=== PATIENT | male | born 1990 | race Two or more races ===

== ENCOUNTER 2020-06-16 11:20 | Inpatient (IN) | payer SELFPAY ==
[~2020-06-16] VITALS: Ht 170.2 cm; Wt 93.0 kg
[2020-06-16] VITALS (11 sets, daily range): BP systolic 109–133; BP diastolic 54–93
[2020-06-16] MEDS ORDERED: Omnipaque-300 100ml vial INJ PRN (12:00)
[2020-06-16] MEDS ORDERED: HYDROmorphone 1mg/ml Carpuject IVP ONE (12:00)
[2020-06-16] MEDS ORDERED: Ketorolac 30mg Inj IV ONE (12:00)
--- NOTE | 2020-06-16 12:09 | Emergency Room Report ---
History of Present Illness General Chief Complaint: Abdominal Pain Source: Patient Present Illness HPI 29-year-old male, recent diagnosis of Covid 4 days ago presents with sharp epigastric pain that started this morning patient was seen in outside hospital patient was evaluated with blood work no advanced imaging patient reports continued pain severity is moderate, intermittent no known aggravating relieving factors no fevers no chills patient does endorse some nausea and vomiting no diarrhea no chest pain or shortness of breath patient presents for evaluation and treatment Allergies: Coded Allergies: No Known Allergies (Unverified , 06/16/20) COVID-19 Screening Contact w/high risk pt: Yes Experienced COVID-19 symptoms?: Yes 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 COVID-19 Screening: Positive COVID-19 COVID-19 Testing Source: nasopharynx Patient History Past Medical History: see triage record Reviewed Nursing Documentation: PMH: Agreed; PSxH: Agreed Nursing Documentation-PMH Past Medical History: No Stated History Review of Systems All Other Systems: negative except mentioned in HPI Physical Exam Vital Signs Date Time Temp Pulse Resp B/P (MAP) Pulse Ox O2 Delivery O2 Flow Rate FiO2 06/16/20 11:26 97.7 86 12 133/93 (106) 95 Room Air Sp02 EP Interpretation: reviewed, normal General Appearance: well appearing, no apparent distress, alert Head: normocephalic, atraumatic Eyes: bilateral eye PERRL, bilateral eye EOMI ENT: uvula midline, moist mucus membranes Neck: supple, thyroid normal, supple/symm/no masses Respiratory: lungs clear, no respiratory distress, no retraction, no accessory muscle use Cardiovascular #1: normal peripheral pulses, regular rate, rhythm, no edema, no gallop, no murmur Gastrointestinal: soft, no guarding, no rebound, tenderness - Epigastrically Musculoskeletal: normal inspection Neurologic: alert, oriented x3 Psychiatric: mood/affect normal Skin: no rash, warm/dry Medical Decision Making Diagnostic Impression: Primary Impression: Appendicitis Qualified Codes: K35.30 - Acute appendicitis with localized peritonitis, without perforation or gangrene Additional Impression: COVID-19 ER Course 29-year-old male presents with epigastric pain now with right lower quadrant pain while in the ED Repeat evaluation at 1:20 PM patient now with right lower quadrant tenderness Patient started on Zosyn Dr. Shi consulted Plan for admission for surgical management. Patient admitted to Dr. Munguia Laboratory Tests Test 06/16/20 11:56 White Blood Count 17.5 K/UL (4.8-10.8) H Red Blood Count 6.25 M/UL (4.70-6.10) H Hemoglobin 17.6 G/DL (14.2-18.0) Hematocrit 52.0 % (42.0-52.0) Mean Corpuscular Volume 83 FL (80-99) Mean Corpuscular Hemoglobin 28.1 PG (27.0-31.0) Mean Corpuscular Hemoglobin Concent 33.8 G/DL (32.0-36.0) Red Cell Distribution Width 12.5 % (11.6-14.8) Platelet Count 225 K/UL (150-450) Mean Platelet Volume 7.2 FL (6.5-10.1) Neutrophils (%) (Auto) % (45.0-75.0) Lymphocytes (%) (Auto) % (20.0-45.0) Monocytes (%) (Auto) % (1.0-10.0) Eosinophils (%) (Auto) % (0.0-3.0) Basophils (%) (Auto) % (0.0-2.0) Differential Total Cells Counted 100 Neutrophils % (Manual) 89 % (45-75) H Lymphocytes % (Manual) 8 % (20-45) L Monocytes % (Manual) 3 % (1-10) Eosinophils % (Manual) 0 % (0-3) Basophils % (Manual) 0 % (0-2) Band Neutrophils 0 % (0-8) Platelet Estimate Adequate Platelet Morphology Normal Red Blood Cell Morphology Normal Urine Color Yellow Urine Appearance Cloudy Urine pH 5 (4.5-8.0) Urine Specific [place] 1.020 (1.005-1.035) Urine Protein 2+ (NEGATIVE) H Urine Glucose (UA) Negative (NEGATIVE) Urine Ketones 1+ (NEGATIVE) H Urine Blood 1+ (NEGATIVE) H Urine Nitrite Negative (NEGATIVE) Urine Bilirubin Negative (NEGATIVE) Urine Urobilinogen Normal MG/DL (0.0-1.0) Urine Leukocyte Esterase Negative (NEGATIVE) Urine RBC 0-2 /HPF (0 - 0) H Urine WBC 0 /HPF (0 - 0) Urine Squamous Epithelial Cells Occasional /LPF Urine Amorphous Sediment Many /LPF (NONE) H Urine Bacteria Occasional /HPF (NONE) Sodium Level 139 MMOL/L (136-145) Potassium Level 4.4 MMOL/L (3.5-5.1) Chloride Level 102 MMOL/L (98-107) Carbon Dioxide Level 26 MMOL/L (21-32) Anion Gap 11 mmol/L (5-15) Blood Urea Nitrogen 10 mg/dL (7-18) Creatinine 1.0 MG/DL (0.55-1.30) Estimated Glomerular Filtration Rate > 60 mL/min (>60) Glucose Level 126 MG/DL (74-106) H Calcium Level 10.2 MG/DL (8.5-10.1) H Total Bilirubin 0.5 MG/DL (0.2-1.0) Aspartate Amino Transferase (AST) 34 U/L (15-37) Alanine Aminotransferase (ALT) 86 U/L (12-78) H Alkaline Phosphatase 108 U/L (46-116) Total Protein 8.9 G/DL (6.4-8.2) H Albumin 4.6 G/DL (3.4-5.0) Globulin 4.3 g/dL Albumin/Globulin Ratio 1.1 (1.0-2.7) Lipase 132 U/L (73-393) Urine Opiates Screen Negative (NEGATIVE) Urine Barbiturates Screen Negative (NEGATIVE) Phencyclidine (PCP) Screen Negative (NEGATIVE) Urine Amphetamines Screen Negative (NEGATIVE) Urine Benzodiazepines Screen Negative (NEGATIVE) Urine Cocaine Screen Negative (NEGATIVE) Urine Marijuana (THC) Screen Negative (NEGATIVE) CT/MRI/US Diagnostic Results CT/MRI/US Diagnostic Results : Impression CT shows: Appendicitis, groundglass opacities at the lung bases patient with appendicitis and COVID-19 Last Vital Signs Date Time Temp Pulse Resp B/P (MAP) Pulse Ox O2 Delivery O2 Flow Rate FiO2 06/16/20 11:26 97.7 86 12 133/93 (106) 95 Room Air Disposition: ADMITTED INPATIENT Condition: Dennis Pires MD Jun 16, 2020 12:09
[2020-06-16 12:27] LABS: HEMOGLOBIN 17.6 G/DL (14.2-18.0); MEAN CORPUSCULAR VOLUME 83 FL (80-99); PLATELET COUNT 225 K/UL (150-450); RED BLOOD COUNT 6.25 M/UL (4.70-6.10); RED CELL DISTRIBUTION WIDTH 12.5 % (11.6-14.8); WHITE BLOOD COUNT 17.5 K/UL (4.8-10.8)
[2020-06-16 12:28] LABS: APPEARANCE,URINE CLOUDY; BILIRUBIN, URINE NEGATIVE (NEGATIVE); GLUCOSE, URINE (UA) NEGATIVE (NEGATIVE); KETONES,URINE 1+ (NEGATIVE); LEUKOCYTE ESTERASE ,URINE NEGATIVE (NEGATIVE); NITRITE,URINE NEGATIVE (NEGATIVE); PH,URINE 5 (4.5-8.0); PROTEIN,URINE 2+ (NEGATIVE); UROBILINOGEN,URINE NORMAL MG/DL (0.0-1.0)
[2020-06-16 12:33] LABS: COLOR,URINE YELLOW
[2020-06-16 12:36] LABS: ANION GAP 11 mmol/L (5-15); BLOOD UREA NITROGEN 10 mg/dL (7-18); CALCIUM 10.2 MG/DL (8.5-10.1); CARBON DIOXIDE 26 MMOL/L (21-32); CHLORIDE 102 MMOL/L (98-107); POTASSIUM 4.4 MMOL/L (3.5-5.1); SODIUM 139 MMOL/L (136-145)
[2020-06-16 12:40] LABS: ALANINE AMINOTRANSFERASE 86 U/L (12-78); ALBUMIN 4.6 G/DL (3.4-5.0); ALBUMIN/GLOBULIN RATIO 1.1 (1.0-2.7); ALKALINE PHOSPHATASE 108 U/L (46-116); ASPARTATE AMINO TRANSFERASE 34 U/L (15-37); BILIRUBIN,TOTAL 0.5 MG/DL (0.2-1.0)
--- NOTE | 2020-06-16 13:07 | NUR ---
ED Nurse Note: pt returned from ct
[2020-06-16] MEDS ORDERED: metroNIDAZOLE 500mg tab ORAL ONE (13:30)
[2020-06-16] MEDS ORDERED: cefTRIAXone 1 GM in NS 55 ML IVPB ONE (13:30)
--- NOTE | 2020-06-16 13:38 | Diagnostic Imaging Report ---
Clinical Indication: Abdominal pain, nausea and vomiting Technique: No oral contrast utilized, per emergency room physician request IV administration nonionic contrast. Venous phase spiral acquisition obtained through the abdomen and pelvis. Multiplanar reconstructions were generated. Total dose length product 557 mGycm. CTDIvol(s) 9 mGy. Dose reduction achieved using automated exposure control Comparison: none Findings: The appendix is enlarged and there is periappendiceal inflammation. No fluid collection or gas demonstrated. No evidence of diverticulosis or diverticulitis. No small bowel distention. No free or loculated intraperitoneal gas or fluid is evident. There is a tiny umbilical hernia contains only fat. Distal esophagus, stomach, duodenum are unremarkable. The liver is hypoattenuating, consistent with fatty change. The gallbladder, bile ducts, pancreas are unremarkable. The adrenals are unremarkable. There is a prominent left extrarenal pelvis, kidneys are otherwise unremarkable. No renal or ureteral calculi, hydronephrosis, or hydroureter. No pelvic mass or adenopathy. Included lung bases demonstrate posterior dependent atelectatic changes. There are a few small faint nondependent groundglass opacities in the lingula, right middle lobe, and anterior inferior right lower lobe. The bones are unremarkable. Impression: Positive for uncomplicated acute appendicitis Scattered small basilar groundglass opacities, nonspecific but could indicate multifocal pneumonia such as viral pneumonia Fatty liver Findings discussed by phone with Dr. Horta at the time of interpretation The CT scanner at [facility] is accredited by the [employer] and the scans are performed using protocols designed to limit radiation exposure to as low as reasonably achievable to attain images of sufficient resolution adequate for diagnostic evaluation.
[2020-06-16] MEDS ORDERED: Piperacillin/Tazobactam 3.375 GM in NS 110 ML IVPB ONE (13:45)
--- NOTE | 2020-06-16 13:50 | NUR ---
ED Nurse Note: rapid covid sent down
--- NOTE | 2020-06-16 14:10 | History and Physical ---
History of Present Illness General Date patient seen: Jun 16, 2020 Time patient seen: 13:30 Reason for Hospitalization: Abdominal Pain Present Illness HPI 29 years old male with no significant past medical history, presented to the emergency department with complaint of abdominal pain located in epigastric region since the morning. Patient pain reported as sharp , 10 out of 10, intermittent. No radiation. Patient also reported nausea and nonbloody vomiting , but no diarrhea. No fever or chills. No chest pain or shortness of breath. Patient was diagnosed outisde with COVID-19 on June 10. Upon evaluation patient was afebrile, saturation was 95% on room air. Laboratory work-up revealed leukocytosis WBC 17.5, stable hemoglobin ,hematocrit and platelet count. Urinalysis revealed +2 protein , no evidence of urinary tract infection. Stable electrolytes and renal parameters. Glucose 126. Ca 10.3 AST 34 , ALT 86, stable lipase. Urine toxicology screen was negative. CT scan of the abdomen and pelvis revealed uncomplicated acute appendicitis. Scattered small basilar groundglass opacity nonspecific, but could indicate multifocal pneumonia. Fatty liver. In emergency department patient received empiric antibiotic along with Pepcid and antiemetic. IV fluids provided. Surgery consulted. Rapid COVID 19 pending. Patient will be admitted to medical surgical floor for further management. Allergies: Coded Allergies: No Known Allergies (Unverified , 06/16/20) COVID-19 Screening Contact w/high risk pt: Yes Experienced COVID-19 symptoms?: Yes Coronavirus symptoms experienc: Loss of taste or smell, Nausea/Vomiting Patient History Healthcare decision maker Resuscitation status Full code Advanced Directive on File Review of Systems Constitutional: Reports: weakness Respiratory: Reports: other - COVID diagnsoed 06/10 Cardiovascular: Reports: no symptoms Gastrointestinal: Reports: see HPI Genitourinary: Reports: no symptoms Musculoskeletal: Reports: no symptoms Skin: Reports: no symptoms Psychiatric: Reports: no symptoms Neurological: Reports: no symptoms Endocrine: Reports: no symptoms Hematologic/Lymphatic: Reports: no symptoms Physical Exam General Appearance: WD/WN, no apparent distress, alert Lines, tubes and drains: peripheral HEENT: normocephalic, atraumatic, anicteric, mucous membranes moist, PERRL Neck: supple Respiratory/Chest: chest wall non-tender, lungs clear Cardiovascular/Chest: normal peripheral pulses, normal rate, regular rhythm Abdomen: normal bowel sounds, soft - RLQ and epigastric tenderenss, no rebound, no guarding Extremities: normal range of motion, non-tender, no calf tenderness, normal ca pillary refill Skin Exam: normal pigmentation, warm/dry Neurologic: volleyball referee II-XII grossly normal, no motor/sensory deficits, alert, oriented x 3, responsive Musculoskeletal: normal muscle bulk Last 24 Hour Vital Signs Date Time Temp Pulse Resp B/P (MAP) Pulse Ox O2 Delivery O2 Flow Rate FiO2 06/16/20 12:00 97.7 12 133/93 95 Room Air 06/16/20 12:00 86 12 Room Air 06/16/20 11:26 97.7 86 12 133/93 (106) 95 Room Air Laboratory Tests Test 06/16/20 11:56 White Blood Count 17.5 K/UL (4.8-10.8) H Red Blood Count 6.25 M/UL (4.70-6.10) H Hemoglobin 17.6 G/DL (14.2-18.0) Hematocrit 52.0 % (42.0-52.0) Mean Corpuscular Volume 83 FL (80-99) Mean Corpuscular Hemoglobin 28.1 PG (27.0-31.0) Mean Corpuscular Hemoglobin Concent 33.8 G/DL (32.0-36.0) Red Cell Distribution Width 12.5 % (11.6-14.8) Platelet Count 225 K/UL (150-450) Mean Platelet Volume 7.2 FL (6.5-10.1) Neutrophils (%) (Auto) % (45.0-75.0) Lymphocytes (%) (Auto) % (20.0-45.0) Monocytes (%) (Auto) % (1.0-10.0) Eosinophils (%) (Auto) % (0.0-3.0) Basophils (%) (Auto) % (0.0-2.0) Differential Total Cells Counted 100 Neutrophils % (Manual) 89 % (45-75) H Lymphocytes % (Manual) 8 % (20-45) L Monocytes % (Manual) 3 % (1-10) Eosinophils % (Manual) 0 % (0-3) Basophils % (Manual) 0 % (0-2) Band Neutrophils 0 % (0-8) Platelet Estimate Adequate Platelet Morphology Normal Red Blood Cell Morphology Normal Urine Color Yellow Urine Appearance Cloudy Urine pH 5 (4.5-8.0) Urine Specific [place] 1.020 (1.005-1.035) Urine Protein 2+ (NEGATIVE) H Urine Glucose (UA) Negative (NEGATIVE) Urine Ketones 1+ (NEGATIVE) H Urine Blood 1+ (NEGATIVE) H Urine Nitrite Negative (NEGATIVE) Urine Bilirubin Negative (NEGATIVE) Urine Urobilinogen Normal MG/DL (0.0-1.0) Urine Leukocyte Esterase Negative (NEGATIVE) Urine RBC 0-2 /HPF (0 - 0) H Urine WBC 0 /HPF (0 - 0) Urine Squamous Epithelial Cells Occasional /LPF Urine Amorphous Sediment Many /LPF (NONE) H Urine Bacteria Occasional /HPF (NONE) Sodium Level 139 MMOL/L (136-145) Potassium Level 4.4 MMOL/L (3.5-5.1) Chloride Level 102 MMOL/L (98-107) Carbon Dioxide Level 26 MMOL/L (21-32) Anion Gap 11 mmol/L (5-15) Blood Urea Nitrogen 10 mg/dL (7-18) Creatinine 1.0 MG/DL (0.55-1.30) Estimat Glomerular Filtration Rate > 60 mL/min (>60) Glucose Level 126 MG/DL (74-106) H Calcium Level 10.2 MG/DL (8.5-10.1) H Total Bilirubin 0.5 MG/DL (0.2-1.0) Aspartate Amino Transf (AST/SGOT) 34 U/L (15-37) Alanine Aminotransferase (ALT/SGPT) 86 U/L (12-78) H Alkaline Phosphatase 108 U/L (46-116) Total Protein 8.9 G/DL (6.4-8.2) H Albumin 4.6 G/DL (3.4-5.0) Globulin 4.3 g/dL Albumin/Globulin Ratio 1.1 (1.0-2.7) Lipase 132 U/L (73-393) Urine Opiates Screen Negative (NEGATIVE) Urine Barbiturates Screen Negative (NEGATIVE) Phencyclidine (PCP) Screen Negative (NEGATIVE) Urine Amphetamines Screen Negative (NEGATIVE) Urine Benzodiazepines Screen Negative (NEGATIVE) Urine Cocaine Screen Negative (NEGATIVE) Urine Marijuana (THC) Screen Negative (NEGATIVE) Height (Feet): 5 Height (Inches): 7.00 Weight (Pounds): 205 Medications Current Medications Medications (Trade) Dose Ordered Sig/Black Route PRN Reason Start Time Stop Time Status Last Admin Dose Admin Iohexol (OMNIPAQUE-300 100ml) 100 ml NOW PRN INJ Radiology Procedure 06/16/20 12:00 06/18/20 11:59 Piperacillin Sod/ Tazobactam Sod 3.375 gm/Sodium Chloride 110 ml @ 220 mls/hr ONCE ONCE IVPB 06/16/20 13:45 06/16/20 14:14 06/16/20 13:36 Assessment/Plan Assessment/Plan: ASSESSMENT Acute appendicitis COVID infection [place] liver Elevated AST possibly due to fatty liver Mild hyper Ca likely due to dehydration PLAN OF CARE admit to MS floor NPO IVF empiric Zosyn pain management a/emetic prn surgery eval rapid COVID 19 pending, likely will be positive remains on RA, pulse oximetry stable hold steroids since no hypoxia hold Remdesivir, ID consult fup with CXR monitor inflammatory markers DVT prophylaxis with LMWH supportive care case discussed and evaluated by supervising physician Jodi Kurtz STREAM CONTROL OFFICER Jun 16, 2020 14:10
[2020-06-16] MEDS ORDERED: Morphine Sulfate 2mg/ml Inj(IV/IM USE ONLY) IVP PRN (14:15)
--- NOTE | 2020-06-16 14:15 | NUR ---
ED Nurse Note: Andreina cesar [phone]
--- NOTE | 2020-06-16 15:31 | NUR ---
ED Nurse Note: hand off given to rossi harden
--- NOTE | 2020-06-16 15:40 | Diagnostic Imaging Report ---
Indication: Shortness of breath Technique: One view of the chest Comparison: none Findings: Right hemidiaphragm is elevated. Lungs and pleural spaces are clear. The heart size is normal Impression: Negative
--- NOTE | 2020-06-16 15:59 | NUR ---
NURSE NOTES: Received report from THERESE Adames from ER. Patient received in stable condition, AAOx4, able to make needs known, ambulatory. RN oriented patient to room and conducted head to toe assessment. Patient on room air, breathing is even and unlabored, no SOB noted at this time. Patient states he has a pain scale of 5/10 on his RLQ but denies the need of any pain medication at this time. Skin is intact, IV site patent and intact. COnsent for appendectomy obtained and explained by THERESE Adames. Belongings checked and signed with patient. RN to obtain admission orders from primary. Bed is locked and placed in lowest position. Call light within reach. WIll continue to monitor
--- NOTE | 2020-06-16 16:02 | Pre-Procedure Note/Attestation ---
Pre-Procedure Note/Attestation Complete Prior to Procedure Planned Procedure: not applicable Procedure Narrative: laparoscopic appendectomy possible open appendectomy Indications for Procedure Pre-Operative Diagnosis: Acute Appendicitis Attestation I attest that I discussed the nature of the procedure; its benefits; risks and complications; and alternatives (and the risks and benefits of such alternatives), prior to the procedure, with the patient (or the patient's legal sales representative livestock). I attest that, if there was a reasonable possibility of needing a blood transfusion, the patient (or the patient's legal sales representative livestock) was given the [facility] standardized written summary, pursuant to the [employer] Blood Safety Act ([place] Health and Safety Code # 1645, as amended). I attest that I re-evaluated the patient just prior to the surgery and that there has been no change in the patient's H&P, except as documented below: Mercedes Shi MD Jun 16, 2020 16:02
[2020-06-16] MEDS ORDERED: Lidocaine 1% MPF 10mg/ml 5ml ONE (16:14)
[2020-06-16] MEDS ORDERED: Sodium Chloride 10ml vial INJ ONE (16:14)
[2020-06-16] MEDS ORDERED: DiphenhydrAMINE 50mg/ml Inj IVP PRN (16:15)
[2020-06-16] MEDS ORDERED: Meperidine 25mg/1ml Inj (FOR RIGORS ONLY) IV PRN (16:15)
[2020-06-16] MEDS ORDERED: fentaNYL 100 mcg/2 mL IV ONE (16:15)
[2020-06-16] MEDS ORDERED: Atropine Sulfate 0.4mg/ml inj IVP PRN (16:15)
[2020-06-16] MEDS ORDERED: fentaNYL 100 mcg/2 mL IV PRN (16:15)
[2020-06-16] MEDS ORDERED: LORazepam Inj 2mg/ml 1ml IV PRN (16:15)
[2020-06-16] MEDS ORDERED: oxyCODONE HCL/Acetaminophen 5/325mg ORAL PRN (16:15)
[2020-06-16] MEDS ORDERED: Midazolam 2mg/2ml Inj IVP PRN (16:15)
[2020-06-16] MEDS ORDERED: Hydromorphone 0.5mg/0.5ml inj IVP PRN (16:15)
[2020-06-16] MEDS ORDERED: HYDROcodone/Acetamin 7.5/325 tab ORAL PRN (16:15)
[2020-06-16] MEDS ORDERED: Labetalol 5mg/ml 20ml vial IV PRN (16:15)
[2020-06-16] MEDS ORDERED: HYDROcodone/Acetamin 5/325 tab ORAL PRN (16:15)
[2020-06-16] MEDS ORDERED: Metoclopramide 10mg/2ml Inj IVP PRN ×2 (16:15→18:15)
[2020-06-16] MEDS ORDERED: LR 1000ml 1,000 ML IVLG SCH (16:15)
[2020-06-16] MEDS ORDERED: Bupivacaine 0.25% Inj 30ml INJ ONE (16:18)
[2020-06-16] MEDS ORDERED: NeoSporin Gu Irrig 1ml Amp IRRIG ONE (16:19)
[2020-06-16] MEDS ORDERED: Bacitracin 50000 Units Vial ONE (16:19)
--- NOTE | 2020-06-16 16:25 | Anethesia Preoperative Eval ---
Anesthesia Pre-op PMH/ROS General Date of Evaluation: Jun 16, 2020 Time of Evaluation: 16:36 Anesthesiologist: Daniel ASA Score: ASA 3 Mallampati Score Class I : Soft palate, uvula, fauces, pillars visible Class II: Soft palate, uvula, fauces visible Class III: Soft palate, base of uvula visible Class IV: Only hard plate visible Mallampati Classification: Class III Surgeon: Yuridia Diagnosis: Acute Appendicitis Surgical Procedure: Laproscopic Appendectomy Anesthesia History: none Family History: no anesthesia problems Allergies: Coded Allergies: No Known Allergies (Unverified , 06/16/20) Medications: see eMAR Patient NPO?: Yes Past Medical History Hematology/Immune: Reports: other - Covid + Other: obesity - BMI 32 Anesthesia Pre-op Phys. Exam Physician Exam Last Vital Signs Date Time Temp Pulse Resp B/P (MAP) Pulse Ox O2 Delivery O2 Flow Rate FiO2 06/16/20 12:00 97.7 12 133/93 95 Room Air 06/16/20 12:00 86 Constitutional: NAD Neurologic: CN 2-12 intact Cardiovascular: RRR Respiratory: CTA Gastrointestinal: S/NT/ND Airway Exam Mallampati Score: Class III MO: full ROM: full Teeth: intact Anesthesia Pre-op A/P Labs Hematology Test 06/16/20 11:56 White Blood Count 17.5 K/UL (4.8-10.8) H Red Blood Count 6.25 M/UL (4.70-6.10) H Hemoglobin 17.6 G/DL (14.2-18.0) Hematocrit 52.0 % (42.0-52.0) Mean Corpuscular Volume 83 FL (80-99) Mean Corpuscular Hemoglobin 28.1 PG (27.0-31.0) Mean Corpuscular Hemoglobin Concent 33.8 G/DL (32.0-36.0) Red Cell Distribution Width 12.5 % (11.6-14.8) Platelet Count 225 K/UL (150-450) Mean Platelet Volume 7.2 FL (6.5-10.1) Neutrophils (%) (Auto) % (45.0-75.0) Lymphocytes (%) (Auto) % (20.0-45.0) Monocytes (%) (Auto) % (1.0-10.0) Eosinophils (%) (Auto) % (0.0-3.0) Basophils (%) (Auto) % (0.0-2.0) Differential Total Cells Counted 100 Neutrophils % (Manual) 89 % (45-75) H Lymphocytes % (Manual) 8 % (20-45) L Monocytes % (Manual) 3 % (1-10) Eosinophils % (Manual) 0 % (0-3) Basophils % (Manual) 0 % (0-2) Band Neutrophils 0 % (0-8) Platelet Estimate Adequate Platelet Morphology Normal Red Blood Cell Morphology Normal Chemistry Test 06/16/20 11:56 Sodium Level 139 MMOL/L (136-145) Potassium Level 4.4 MMOL/L (3.5-5.1) Chloride Level 102 MMOL/L (98-107) Carbon Dioxide Level 26 MMOL/L (21-32) Anion Gap 11 mmol/L (5-15) Blood Urea Nitrogen 10 mg/dL (7-18) Creatinine 1.0 MG/DL (0.55-1.30) Estimat Glomerular Filtration Rate > 60 mL/min (>60) Glucose Level 126 MG/DL (74-106) H Calcium Level 10.2 MG/DL (8.5-10.1) H Total Bilirubin 0.5 MG/DL (0.2-1.0) Aspartate Amino Transf (AST/SGOT) 34 U/L (15-37) Alanine Aminotransferase (ALT/SGPT) 86 U/L (12-78) H Alkaline Phosphatase 108 U/L (46-116) C-Reactive Protein, Quantitative Pending Total Protein 8.9 G/DL (6.4-8.2) H Albumin 4.6 G/DL (3.4-5.0) Globulin 4.3 g/dL Albumin/Globulin Ratio 1.1 (1.0-2.7) Lipase 132 U/L (73-393) Risk Assessment & Plan Assessment: ASA 3 Plan: GA, SED, GlideScope Status Change Before Surgery: No Pre-Antibiotics Dru Gram Ancef IV Given Within 1 Hr of Incision: Yes Time Given: 17:06 Luis Sanchez MD Jun 16, 2020 16:25
--- NOTE | 2020-06-16 16:26 | Immediate Post-Op Evaluation ---
Immediate Post-Op Evalulation Immediate Post-Op Evalulation Procedure: Laproscopic Appendectomy Date of Evaluation: Jun 16, 2020 Time of Evaluation: 18:33 IV Fluids: 1000 LR Blood Products: 0 Estimated Blood Loss: 10 Urinary Output: 0 Blood Pressure Systolic: 116 Blood Pressure Diastolic: 67 Pulse Rate: 106 Respiratory Rate: 18 O2 Sat by Pulse Oximetry: 93 Temperature (Fahrenheit): 98.2 Pain Score (1-10): 2 Nausea: No Vomiting: No Complications 0 Patient Status: awake, reacts, patent, extubated, none Hydration Status: adequate Dru Gram Ancef IV Given Within 1 Hr of Incision: Yes Time Given: 17:06 Luis Sanchez MD Jun 16, 2020 16:26
[2020-06-16] MEDS ORDERED: Rocuronium Bromide 50mg/5ml Inj IV ONE (16:32)
--- NOTE | 2020-06-16 16:59 | Consultation ---
DATE OF CONSULTATION: 06/16/2020 PREOPERATIVE CONSULTATION REASON FOR CONSULTATION: Abdominal pain. REQUESTING PHYSICIAN: ER physician. HISTORY OF PRESENT ILLNESS: This is a 29-year-old male who presented to emergency room complaining of abdominal pain since last night. He stated the pain was located at the epigastrium and now he can feel it more on the right lower quadrant of the abdomen. This pain has been associated with nausea and vomiting. He denied any fever, cough, dysuria, or frequency. He had a normal bowel movement this morning. He has been diagnosed positive with COVID-19 about a week ago, but he denies any fever or cough. PAST MEDICAL HISTORY: He denies allergies, asthma, diabetes, hypertension, cardiac or renal diseases. SURGERIES: None. MEDICATIONS: None. SOCIAL HISTORY: The patient is a 29-year-old male who lives as a common-law and is father of 2 children. He denies smoking, but drinks occasionally. REVIEW OF SYSTEMS: Noncontributory. PHYSICAL EXAMINATION: GENERAL: The patient appeared to be a well-developed, well-nourished 29-year-old male, lying on the gurney, complaining of abdominal pain. HEENT: Head is normocephalic and atraumatic. Eyes, pupils are equal, round, and reactive to light. Mouth is clear. NECK: There is no palpable thyromegaly or adenopathy. CHEST: Clear to auscultation and percussion. HEART: There is no gallop or murmur. S1 and S2 are within normal limits. ABDOMEN: Soft and flat with tenderness and guarding at right lower quadrant. There is no palpable organomegaly. Bowel sounds are audible. GENITALIA: Normal. EXTREMITIES: Within normal limits. LABORATORY DATA: CBC has shown a WBC of 17,500 with a left shift. Chemistry is within normal limits except for calcium of 10.2. UA is normal. CAT scan of the abdomen has been interpreted as acute appendicitis. ASSESSMENT: Acute appendicitis. PLAN: After rehydration, the patient will undergo laparoscopic appendectomy, possible open appendectomy. Risks and benefits have been explained to him. He understood and granted consent. Mercedes Shi M.D. DR: ROYER JOB#: [id number] CC:
[2020-06-16] MEDS ORDERED: Neostigmine 1mg/ml 10ml Inj ONE (17:00)
[2020-06-16] MEDS ORDERED: LR 1000ml ONE (17:00)
[2020-06-16] MEDS ORDERED: NS Irrig 1000ml ONE (17:00)
[2020-06-16] MEDS ORDERED: Sterile Water Irrig 1000ml IRRIG ONE (17:00)
[2020-06-16] MEDS ORDERED: Glycopyrrolate 0.2mg/ml 1ml Vial ONE (17:00)
--- NOTE | 2020-06-16 18:08 | Brief Operative Note ---
Immediate Post Operative Note Operative Note Pre-op Diagnosis: Acute Appendicitis Procedure: lap appy Post-op Diagnosis: acute appy Post-op Diagnosis: same as pre-op Findings: consistent w/pre-op dx studies Surgeon: Guicho Roberts Tile Professional: none Anesthesiologist: Dr. Sanchez Anesthesia: general Specimen: yes Complications: none Condition: stable Fluids: per anesth. Estimated Blood Loss: volume - 10 ml Drains: none Implant(s) used?: No Mercedes Shi MD Jun 16, 2020 18:08
[2020-06-16] MEDS ORDERED: Acetaminophen 650 MG SUPP RECTAL PRN (18:15)
--- NOTE | 2020-06-16 18:22 | Infectious Diseases Prog Note ---
Assessment/Plan Assessment/Plan Full consult dictated: appendicitis leukocytosis covid- + s/p lap cholecystectomy zosyn no tx for covid - sats stable thank you Subjective Allergies: Coded Allergies: No Known Allergies (Unverified , 06/16/20) Objective Last 24 Hour Vital Signs Date Time Temp Pulse Resp B/P (MAP) Pulse Ox O2 Delivery O2 Flow Rate FiO2 06/16/20 16:00 97.6 83 19 129/65 (86) 98 06/16/20 15:59 Room Air 06/16/20 12:00 97.7 12 133/93 95 Room Air 06/16/20 12:00 86 12 Room Air 06/16/20 11:26 97.7 86 12 133/93 (106) 95 Room Air Height (Feet): 5 Height (Inches): 7.00 Weight (Pounds): 205 Microbiology Date/Time Source Procedure Growth Status 06/16/20 13:40 Nasopharynx SARS-CoV-2 RdRp Gene Assay - Final Complete Laboratory Tests Test 06/16/20 11:56 White Blood Count 17.5 K/UL (4.8-10.8) H Red Blood Count 6.25 M/UL (4.70-6.10) H Hemoglobin 17.6 G/DL (14.2-18.0) Hematocrit 52.0 % (42.0-52.0) Mean Corpuscular Volume 83 FL (80-99) Mean Corpuscular Hemoglobin 28.1 PG (27.0-31.0) Mean Corpuscular Hemoglobin Concent 33.8 G/DL (32.0-36.0) Red Cell Distribution Width 12.5 % (11.6-14.8) Platelet Count 225 K/UL (150-450) Mean Platelet Volume 7.2 FL (6.5-10.1) Neutrophils (%) (Auto) % (45.0-75.0) Lymphocytes (%) (Auto) % (20.0-45.0) Monocytes (%) (Auto) % (1.0-10.0) Eosinophils (%) (Auto) % (0.0-3.0) Basophils (%) (Auto) % (0.0-2.0) Differential Total Cells Counted 100 Neutrophils % (Manual) 89 % (45-75) H Lymphocytes % (Manual) 8 % (20-45) L Monocytes % (Manual) 3 % (1-10) Eosinophils % (Manual) 0 % (0-3) Basophils % (Manual) 0 % (0-2) Band Neutrophils 0 % (0-8) Platelet Estimate Adequate Platelet Morphology Normal Red Blood Cell Morphology Normal Urine Color Yellow Urine Appearance Cloudy Urine pH 5 (4.5-8.0) Urine Specific [place] 1.020 (1.005-1.035) Urine Protein 2+ (NEGATIVE) H Urine Glucose (UA) Negative (NEGATIVE) Urine Ketones 1+ (NEGATIVE) H Urine Blood 1+ (NEGATIVE) H Urine Nitrite Negative (NEGATIVE) Urine Bilirubin Negative (NEGATIVE) Urine Urobilinogen Normal MG/DL (0.0-1.0) Urine Leukocyte Esterase Negative (NEGATIVE) Urine RBC 0-2 /HPF (0 - 0) H Urine WBC 0 /HPF (0 - 0) Urine Squamous Epithelial Cells Occasional /LPF Urine Amorphous Sediment Many /LPF (NONE) H Urine Bacteria Occasional /HPF (NONE) Sodium Level 139 MMOL/L (136-145) Potassium Level 4.4 MMOL/L (3.5-5.1) Chloride Level 102 MMOL/L (98-107) Carbon Dioxide Level 26 MMOL/L (21-32) Anion Gap 11 mmol/L (5-15) Blood Urea Nitrogen 10 mg/dL (7-18) Creatinine 1.0 MG/DL (0.55-1.30) Estimat Glomerular Filtration Rate > 60 mL/min (>60) Glucose Level 126 MG/DL (74-106) H Calcium Level 10.2 MG/DL (8.5-10.1) H Total Bilirubin 0.5 MG/DL (0.2-1.0) Aspartate Amino Transf (AST/SGOT) 34 U/L (15-37) Alanine Aminotransferase (ALT/SGPT) 86 U/L (12-78) H Alkaline Phosphatase 108 U/L (46-116) C-Reactive Protein, Quantitative 3.4 mg/dL (0.00-0.90) H Total Protein 8.9 G/DL (6.4-8.2) H Albumin 4.6 G/DL (3.4-5.0) Globulin 4.3 g/dL Albumin/Globulin Ratio 1.1 (1.0-2.7) Lipase 132 U/L (73-393) Urine Opiates Screen Negative (NEGATIVE) Urine Barbiturates Screen Negative (NEGATIVE) Phencyclidine (PCP) Screen Negative (NEGATIVE) Urine Amphetamines Screen Negative (NEGATIVE) Urine Benzodiazepines Screen Negative (NEGATIVE) Urine Cocaine Screen Negative (NEGATIVE) Urine Marijuana (THC) Screen Negative (NEGATIVE) Current Medications Medications (Trade) Dose Ordered Sig/Black Route PRN Reason Start Time Stop Time Status Last Admin Dose Admin Acetaminophen (Tylenol) 650 mg Q4H PRN ORAL Mild Pain (Pain Scale 1-3) 06/16/20 14:15 07/16/20 14:14 Acetaminophen (Tylenol) 650 mg Q4H PRN ORAL Temp >100.5 06/16/20 14:15 07/16/20 14:14 Acetaminophen (Tylenol) 650 mg Q4H PRN RECTAL Mild Pain (Pain Scale 1-3) 06/16/20 18:15 07/16/20 18:14 Acetaminophen/ Hydrocodone Bitart ([place] 5/325) 1 tab Q1H PRN ORAL Mild Pain (Pain Scale 1-3) 06/16/20 16:15 06/16/20 21:00 Acetaminophen/ Hydrocodone Bitart ([place] 7.5/325) 1 tab Q1H PRN ORAL Moderate Pain (Pain Scale 4-6) 06/16/20 16:15 06/16/20 21:00 Al Hydroxide/Mg Hydroxide (Mylanta) 15 ml Q1H PRN ORAL gi upset 06/16/20 16:15 06/16/20 21:00 Atropine Sulfate (Atropine 0.4mg/ ml) 0.5 mg Q5M PRN IVP HR<40 06/16/20 16:15 06/16/20 21:00 Dextrose (Dextrose 50%) 25 ml Q30M PRN IV Hypoglycemia 06/16/20 14:15 09/14/20 14:14 Dextrose (Dextrose 50%) 50 ml Q30M PRN IV Hypoglycemia 06/16/20 14:15 09/14/20 14:14 Dextrose/ Electrolytes 1,000 ml @ 100 mls/hr Q10H IV 06/16/20 20:00 07/16/20 19:59 Diphenhydramine HCl (Benadryl) 25 mg Q15M PRN IVP Itching 06/16/20 16:15 06/16/20 21:00 Enoxaparin Sodium (Lovenox) 40 mg Q24H SUBQ 06/16/20 21:00 09/14/20 20:59 Famotidine (Pepcid) 40 mg DAILY ORAL 06/17/20 09:00 09/15/20 08:59 Fentanyl Citrate (Sublimaze 100 mcg/2 mL) 25 mcg Q10M PRN IV Moderate Pain (Pain Scale 4-6) 06/16/20 16:15 06/16/20 21:00 Hydralazine HCl (Apresoline) 5 mg Q30M PRN IV SBP>160 / DBP>90 06/16/20 16:15 06/16/20 21:00 Hydromorphone HCl (Dilaudid) 0.5 mg Q15M PRN IVP Severe Pain (Pain Scale 7-10) 06/16/20 16:15 06/16/20 21:00 Hydromorphone HCl (Dilaudid) 1 mg Q4H PRN IVP For Pain 06/16/20 18:15 06/23/20 18:14 UNV Iohexol (OMNIPAQUE-300 100ml) 100 ml NOW PRN INJ Radiology Procedure 06/16/20 12:00 06/18/20 11:59 Labetalol HCl (Normodyne) 5 mg Q10M PRN IV SBP>160 / DBP>90 06/16/20 16:15 06/16/20 21:00 Lorazepam (Ativan 2mg/ml 1ml) 1 mg Q15M PRN IV For Anxiety 06/16/20 16:15 06/16/20 21:00 Meperidine HCl (Demerol) 25 mg Q5M PRN IV SHIVERING.MAY REPEAT X 1 06/16/20 16:15 06/16/20 21:00 Metoclopramide HCl (Reglan) 10 mg Q1H PRN IVP Nausea & Vomiting 06/16/20 16:15 06/16/20 21:00 Metoclopramide HCl (Reglan) 10 mg Q8H PRN IVP Nausea & Vomiting 06/16/20 18:15 07/16/20 18:14 Midazolam HCl (Versed 2mg/2ml vial) 1 mg Q15M PRN IVP For Anxiety 06/16/20 16:15 06/16/20 21:00 Morphine Sulfate (Morphine Sulfate) 2 mg Q4H PRN IVP Moderate Pain (Pain Scale 4-6) 06/16/20 14:15 06/23/20 14:14 Ondansetron HCl (Zofran) 4 mg Q1H PRN IVP Nausea & Vomiting 06/16/20 16:15 06/16/20 21:00 Ondansetron HCl (Zofran) 4 mg Q6H PRN IVP Nausea & Vomiting 06/16/20 14:15 07/16/20 14:14 Oxycodone/ Acetaminophen (Percocet 5-325) 1 tab Q1H PRN ORAL Severe Pain (Pain Scale 7-10) 06/16/20 16:15 06/16/20 21:00 Pantoprazole (Protonix) 40 mg DAILY IVP 06/16/20 18:15 07/16/20 18:14 Piperacillin Sod/ Tazobactam Sod 3.375 gm/Sodium Chloride 110 ml @ 27.5 mls/hr Q8HR IVPB 06/16/20 22:00 06/23/20 21:59 Sodium Chloride 1,000 ml @ 75 mls/hr [id number] IVLG 06/16/20 17:00 07/16/20 16:59 06/16/20 16:42 Giovanna Lewis MD Jun 16, 2020 18:22
--- NOTE | 2020-06-16 19:15 | Consultation ---
DATE OF CONSULTATION: 06/16/2020 INFECTIOUS DISEASE CONSULTATION CONSULTING PHYSICIAN: Giovanna Lewis MD. ATTENDING PHYSICIAN: Tano Munguia MD. REFERRING PHYSICIAN: Tano Munguia MD. REASON FOR CONSULTATION: Appendicitis, leukocytosis, COVID infection. CHIEF COMPLAINT: The patient's chief complaint coming into the hospital is abdominal pain and appendicitis. HISTORY OF PRESENT ILLNESS: This is a 29-year-old male who comes in to [facility]. The patient had abdominal pain. The patient's CT scan of the abdomen and pelvis showed appendicitis. The patient is status post appendectomy. The patient has elevated white count. The patient positive for COVID testing. Saturations are stable on room air. Chest x-ray is negative. Infectious Disease consultation is requested for management of this patient. The patient is on Zosyn currently. The patient is again status post appendectomy for appendicitis. REVIEW OF SYSTEMS: GENERAL: Main issue is abdominal pain. He has no fevers. PULMONARY: No shortness of breath. GASTROINTESTINAL: He has abdominal discomfort. GENITOURINARY: No urinary symptoms. PAST MEDICAL HISTORY: Otherwise negative. ALLERGIES: No known allergies. SOCIAL HISTORY: Negative. FAMILY HISTORY: Noncontributory. MEDICATIONS: Noted and reviewed. He is on Zosyn. PHYSICAL EXAMINATION: VITAL SIGNS: Temperature 97.6, pulse rate 106, respiratory rate 18, saturation 98% on room air, blood pressure 129/65. GENERAL: Alert, responsive. He is in COVID isolation. HEART: Regular. No gallop or murmur. LUNGS: Clear bilaterally. ABDOMEN: Soft. Some discomfort. NEUROLOGIC: intact. SKIN: No rash. LABORATORY DATA: White count 17.5, hemoglobin 17.6. Creatinine 1.0. LFTs noted. IMAGING: Chest x-ray, negative. CT scan of the abdomen and pelvis was consistent with acute appendicitis. ASSESSMENT AND PLAN: 1. The patient with acute appendicitis and elevated white count. He is status post appendectomy. Monitor the patient on Zosyn and monitor labs. 2. COVID infection positive. His SARS PCR testing was positive. The patient's saturation is stable on room air. Monitor the patient for hypoxia. No indication for COVID treatment. 3. Continue treatment per primary consultants. Giovanna Lewis M.D. DR: DAVI JOB#: [id number] CC: AARON
--- NOTE | 2020-06-16 19:34 | NUR ---
NURSE HAND-OFF: Important Events on Shift: status post appedectomy Patient Status: stable Diet: clear liquid Pending Orders: n/a Pending Results/Labs:n/a Pending MD notification:n/a Latest Vital Signs: Temperature 98.8 , Pulse 102 , B/P 114 /67 , Respiratory Rate 18 , O2 SAT 100 , Nasal Cannula, O2 Flow Rate 3 . Vital Sign Comment: stable Latest Hatch Fall Score: 20 Fall Risk: Low Risk Safety Measures: Call light Within Reach, Bed Alarm , Side Rails Side Rails x2, Bed position Low and Locked. Fall Precautions: Patient Fall Education Report given to THERESE Gregory.
--- NOTE | 2020-06-16 19:35 | NUR ---
NURSE NOTES: Received patient in no apparent distress. A&OX4. IV site patent and intact. Abdominal surgical dressing noted, dry and intact. Bed in lowest position. Call light within reach. Will continue to monitor.
--- NOTE | 2020-06-16 19:44 | Operative Note - Dictated ---
DATE OF OPERATION: 06/16/2020 PREOPERATIVE DIAGNOSIS: Acute appendicitis. POSTOPERATIVE DIAGNOSIS: Acute appendicitis. OPERATION: Laparoscopic appendectomy. COMPLICATION: None. SURGEON: Mercedes Shi MD CRYPTOLOGIC SUPPORT SPECIALIST: None. ANESTHESIA: General with endotracheal tube. ANESTHESIOLOGIST: Dr. Sanchez. INDICATIONS: This is a 29-year-old male, who presented to emergency room complaining of abdominal pain since last night. The pain was initially at epigastrium and at the time of presentation, it was clearly needed more in the right lower quadrant. This pain was associated with nausea and vomiting. Physical examination showed tenderness and guarding at right lower quadrant. CBC showed WBC of 17,500 with left shift. CAT scan of the abdomen was interpreted as acute appendicitis. DESCRIPTION OF PROCEDURE: The patient was placed supine on the operating table and after general anesthesia with endotracheal tube, the abdomen was properly prepped and draped. Initially, a small incision was given above the umbilicus through which a Veress needle was introduced into the intraperitoneal cavity. This cavity was insufflated up to 15 mmHg and then the Veress needle was removed. The 5 mm trocar was placed in the intraperitoneal cavity through the incision above the umbilicus. Laparoscopic camera was introduced into the intraperitoneal cavity through the trocar above the umbilicus. Under direct vision, a 5 mm trocar was placed at the suprapubic area and a 12 mm trocar at the left lower quadrant of the abdomen. Initially, rapid exploration was performed, which showed the diaphragms to be normal. The part of the stomach that could be seen was normal. The liver showed signs of fatty infiltrate. The gallbladder was distended. The bowels were covered with omentum. Exploration of the right lower quadrant cavity was performed. The cecum was identified. On further exploration, the appendix was identified, which was distended, severely inflamed, and hard. The tip of the appendix had dense adhesions to the posterior abdominal wall. The mesoappendix was isolated and the mesoappendix was ligated and transected with a IQRA stapler and then the appendix was ligated and transected with the help of another IQRA stapler at the base. The appendix was removed from the intraperitoneal cavity through the incision at the left lower quadrant with the help of the Endopouch. After removal of the appendix, the right paracolic gutter and the pelvis was thoroughly irrigated with antibiotic solution. Another exploration was performed and there was no bleeding or complication. The trocars were removed under direct vision. The incisions were infiltrated with a total of 30 mL of Marcaine 0.25%. The subcutaneous tissue was approximated with 4-0 chromic and the skin incisions were approximated with running subcuticular suture of 4-0 chromic. The patient tolerated the procedure very well and was transferred to recovery room in stable condition and extubated. Sponge and needle count correct. Estimated blood loss 10 mL. Condition of the patient at the end of procedure is stable. Mercedes Shi M.D. DR: Pillo JOB#: [id number] CC:
--- NOTE | 2020-06-16 19:52 | NUR ---
NURSE NOTES: Clarified with Jodi Kurtz FUEL AGENT regarding 2 order of D%1/2ns 20kcl and NS IV fluid. Obtained continue d51/2 ns 20kcl order.
[2020-06-16] MEDS: Enoxaparin 40mg Inj SUBQ SCH (20:44)
--- NOTE | 2020-06-16 20:44 | NUR ---
NURSE NOTES: Lovenox held due to post op day #0.
[2020-06-16] MEDS: Pantoprazole Inj IVP SCH (21:22)
[2020-06-16] MEDS: D5 1/2NS w/KCl 20mEq 1,000 ML IV SCH (21:22)
[2020-06-16] MEDS: Piperacillin/Tazobactam 3.375 GM in NS 110 ML IVPB SCH (21:23)
[2020-06-16] MEDS: HYDROmorphone 1mg/ml Carpuject IVP PRN (21:39)
[2020-06-16] MEDS ORDERED: Piperacillin/Tazobactam 3.375 GM in NS 110 ML IVPB SCH (22:00)
[2020-06-17] VITALS: BP 107/67
[2020-06-17 04:00] VITALS: BP 120/100
[2020-06-17] MEDS: D5 1/2NS w/KCl 20mEq 1,000 ML IV SCH ×2 (06:02→16:00)
[2020-06-17 06:03] LABS: HEMATOCRIT 47.6 % (42.0-52.0); HEMOGLOBIN 16.2 G/DL (14.2-18.0); MEAN CORPUSCULAR VOLUME 84 FL (80-99); PLATELET COUNT 259 K/UL (150-450); RED BLOOD COUNT 5.67 M/UL (4.70-6.10); RED CELL DISTRIBUTION WIDTH 12.8 % (11.6-14.8); WHITE BLOOD COUNT 14.9 K/UL (4.8-10.8)
[2020-06-17] MEDS: Piperacillin/Tazobactam 3.375 GM in NS 110 ML IVPB SCH ×3 (06:03→21:28)
[2020-06-17] MEDS: HYDROmorphone 1mg/ml Carpuject IVP PRN ×2 (06:12→16:11)
[2020-06-17 06:42] LABS: ANION GAP 11 mmol/L (5-15); BLOOD UREA NITROGEN 13 mg/dL (7-18); CALCIUM 9.3 MG/DL (8.5-10.1); CARBON DIOXIDE 26 MMOL/L (21-32); CHLORIDE 103 MMOL/L (98-107); CREATININE 1.3 MG/DL (0.55-1.30); POTASSIUM 3.9 MMOL/L (3.5-5.1); SODIUM 140 MMOL/L (136-145)
--- NOTE | 2020-06-17 07:27 | NUR ---
NURSE HAND-OFF: Important Events on Shift: Void well Patient Status: Diet: clear liquid Pending Orders: Pending Results/Labs: Pending MD notification: Latest Vital Signs: Temperature 97.4 , Pulse 81 , B/P 120 /100 , Respiratory Rate 18 , O2 SAT 100 , Nasal Cannula, O2 Flow Rate 3.0 . Vital Sign Comment: Latest Hatch Fall Score: 20 Fall Risk: Low Risk Safety Measures: Call light Within Reach, Bed Alarm Zone 1, Side Rails Side Rails x2, Bed position Low and Locked. Fall Precautions: Patient Fall Education Report given to Russ SALEH.
--- NOTE | 2020-06-17 07:30 | NUR ---
NURSE NOTES: Received report from Polly SALEH. Patient is in awake, A&O x4. No acute distress noted. IV fluids running as ordered. Call light in reach, bed alarm on, bed in lowest position.
[2020-06-17 08:00] VITALS: BP 110/74
[2020-06-17] MEDS: Pantoprazole Inj IVP SCH (08:30)
--- NOTE | 2020-06-17 10:44 | Pulmonology Progress Note ---
Subjective Allergies: Coded Allergies: No Known Allergies (Unverified , 06/16/20) Subjective s/p lap appy 06/16 leuk trending down, afebrile pulse ox remains stable on RA no SOB, no CP started on diet as tolerated pain controlled with current analgesics Objective Last 24 Hour Vital Signs Date Time Temp Pulse Resp B/P (MAP) Pulse Ox O2 Delivery O2 Flow Rate FiO2 06/17/20 08:00 97.5 84 18 110/74 (86) 98 06/17/20 04:00 97.4 81 18 120/100 (107) 100 06/17/20 00:00 97.7 106 18 107/67 (80) 97 06/16/20 21:00 Nasal Cannula 3.0 06/16/20 20:00 96.8 110 18 130/69 (89) 97 06/16/20 18:43 98.8 102 18 114/67 100 Nasal Cannula 3 06/16/20 18:40 99 20 111/61 99 Nasal Cannula 3 06/16/20 18:30 104 22 109/62 98 Nasal Cannula 3 06/16/20 18:25 100 20 116/63 100 Simple Mask 6 06/16/20 18:21 106 18 93 06/16/20 18:20 102 19 115/57 100 Simple Mask 6 06/16/20 18:15 107 22 125/63 100 Simple Mask 6 06/16/20 18:10 108 20 112/54 100 Simple Mask 6 06/16/20 18:05 98.2 106 18 116/67 100 Simple Mask 6 06/16/20 16:00 97.6 83 19 129/65 (86) 98 06/16/20 15:59 Room Air 06/16/20 12:00 97.7 12 133/93 95 Room Air 06/16/20 12:00 86 12 Room Air 06/16/20 11:26 97.7 86 12 133/93 (106) 95 Room Air Intake and Output 06/16/20 06/17/20 19:00 07:00 Intake Total 1000 ml 1310.0 ml Output Total 10 ml 600 ml Balance 990 ml 710.0 ml Intake Oral 800 ml IV Total 1000 ml 510.0 ml Output Urine Total 600 ml Estimated Blood Loss 10 ml # Voids 1 Objective General Appearance: WD/WN, no apparent distress, alert Lines, tubes and drains: peripheral HEENT: normocephalic, atraumatic, anicteric, mucous membranes moist, PERRL Neck: supple Respiratory/Chest: chest wall non-tender, lungs clear Cardiovascular/Chest: normal peripheral pulses, normal rate, regular rhythm Abdomen: normal bowel sounds, soft - RLQ and epigastric tenderenss, no rebound, no guarding Extremities: normal range of motion, non-tender, no calf tenderness, normal capillary refill Skin Exam: normal pigmentation, warm/dry Neurologic: acute care clinical nurse specialist II-XII grossly normal, no motor/sensory deficits, alert, orient ed x 3, responsive Musculoskeletal: normal muscle bulk Microbiology Date/Time Source Procedure Growth Status 06/16/20 13:40 Nasopharynx SARS-CoV-2 RdRp Gene Assay - Final Complete Laboratory Tests 06/16/20 11:56: White Blood Count 17.5H, Red Blood Count 6.25H, Hemoglobin 17.6, Hematocrit 52.0, Mean Corpuscular Volume 83, Mean Corpuscular Hemoglobin 28.1, Mean Corpuscular Hemoglobin Concent 33.8, Red Cell Distribution Width 12.5, Platelet Count 225, Mean Platelet Volume 7.2, Neutrophils (%) (Auto) , Lymphocytes (%) (Auto) , Monocytes (%) (Auto) , Eosinophils (%) (Auto) , Basophils (%) (Auto) , Differential Total Cells Counted 100, Neutrophils % (Manual) 89H, Lymphocytes % (Manual) 8L, Monocytes % (Manual) 3, Eosinophils % (Manual) 0, Basophils % (Manual) 0, Band Neutrophils 0, Platelet Estimate Adequate, Platelet Morphology Normal, Red Blood Cell Morphology Normal, Urine Color Yellow, Urine Appearance Cloudy, Urine pH 5, Urine Specific [place] 1.020, Urine Protein 2+H, Urine Glucose (UA) Negative, Urine Ketones 1+H, Urine Blood 1+H, Urine Nitrite Negat [place], Urine Bilirubin Negative, Urine Urobilinogen Normal, Urine Leukocyte Esterase Negative, Urine RBC 0-2H, Urine WBC 0, Urine Squamous Epithelial Cells Occasional, Urine Amorphous Sediment ManyH, Urine Bacteria Occasional, Sodium Level 139, Potassium Level 4.4, Chloride Level 102, Carbon Dioxide Level 26, Anion Gap 11, Blood Urea Nitrogen 10, Creatinine 1.0, Estimat Glomerular Filtration Rate > 60, Glucose Level 126H, Calcium Level 10.2H, Total Bilirubin 0.5, Aspartate Amino Transf (AST/SGOT) 34, Alanine Aminotransferase (ALT/SGPT) 86H, Alkaline Phosphatase 108, C-Reactive Protein, Quantitative 3.4H, Total Protein 8.9H, Albumin 4.6, Globulin 4.3, Albumin/Globulin Ratio 1.1, Lipase 132, Urine Opiates Screen Negative, Urine Barbiturates Screen Negative, Phencyclidine (PCP) Screen Negative, Urine Amphetamines Screen Negative, Urine Benzodiazepines Screen Negative, Urine Cocaine Screen Negative, Urine Marijuana (THC) Screen Negative 06/17/20 05:11: White Blood Count 14.9H, Red Blood Count 5.67, Hemoglobin 16.2, Hematocrit 47.6, Mean Corpuscular Volume 84, Mean Corpuscular Hemoglobin 28.5, Mean Corpuscular Hemoglobin Concent 34.0, Red Cell Distribution Width 12.8, Platelet Count 259, Mean Platelet Volume 7.5, Neutrophils (%) (Auto) , Lymphocytes (%) (Auto) , Monocytes (%) (Auto) , Eosinophils (%) (Auto) , Basophils (%) (Auto) , Sodium Level 140, Potassium Level 3.9, Chloride Level 103, Carbon Dioxide Level 26, Anion Gap 11, Blood Urea Nitrogen 13, Creatinine 1.3, Estimat Glomerular Filtration Rate > 60, Glucose Level 137H, Calcium Level 9.3 Current Medications Medications (Trade) Dose Ordered Sig/Black Route PRN Reason Start Time Stop Time Status Last Admin Dose Admin Acetaminophen (Tylenol) 650 mg Q4H PRN ORAL Mild Pain (Pain Scale 1-3) 06/16/20 14:15 07/16/20 14:14 Acetaminophen (Tylenol) 650 mg Q4H PRN ORAL Temp >100.5 06/16/20 14:15 07/16/20 14:14 Acetaminophen (Tylenol) 650 mg Q4H PRN RECTAL Mild Pain (Pain Scale 1-3) 06/16/20 18:15 07/16/20 18:14 Dextrose (Dextrose 50%) 25 ml Q30M PRN IV Hypoglycemia 06/16/20 14:15 09/14/20 14:14 Dextrose (Dextrose 50%) 50 ml Q30M PRN IV Hypoglycemia 06/16/20 14:15 09/14/20 14:14 Dextrose/ Electrolytes 1,000 ml @ 100 mls/hr Q10H IV 06/16/20 20:00 2/12/21 19:59 06/17/20 06:02 Enoxaparin Sodium (Lovenox) 40 mg Q24H SUBQ 06/16/20 21:00 09/14/20 20:59 Famotidine (Pepcid) 40 mg DAILY ORAL 06/17/20 09:00 09/15/20 08:59 06/17/20 08:30 Hydromorphone HCl (Dilaudid) 1 mg Q4H PRN IVP For Pain 06/16/20 18:15 06/23/20 18:14 06/17/20 06:12 Iohexol (OMNIPAQUE-300 100ml) 100 ml NOW PRN INJ Radiology Procedure 06/16/20 12:00 06/18/20 11:59 Metoclopramide HCl (Reglan) 10 mg Q8H PRN IVP Nausea & Vomiting 06/16/20 18:15 07/16/20 18:14 Ondansetron HCl (Zofran) 4 mg Q6H PRN IVP Nausea & Vomiting 06/16/20 14:15 07/16/20 14:14 Pantoprazole (Protonix) 40 mg DAILY IVP 06/16/20 18:15 07/16/20 18:14 06/17/20 08:30 Piperacillin Sod/ Tazobactam Sod 3.375 gm/Sodium Chloride 110 ml @ 27.5 mls/hr Q8HR IVPB 06/16/20 22:00 06/23/20 21:59 06/17/20 06:03 Assessment/Plan Assessment/Plan ASSESSMENT Acute appendicitis COVID infection [place] liver Elevated AST possibly due to fatty liver Mild hyper Ca likely due to dehydration PLAN OF CARE MS floor s/p lap appy 06/16 pain management diet as tolerated IVF -dc when tolerates diet empiric Zosyn a/emetic prn OOB as tolerated IS while in the bed rapid COVID 19 positive remains on RA, pulse oximetry stable hold steroids since no hypoxia hold Remdesivir, ID consult appreciated - no indication for COVID treatment at this time fup with CXR- no acute CP pathology monitor inflammatory markers DVT prophylaxis with LMWH supportive care dc plan for am, trend WBC case discussed and evaluated by supervising physician Jodi Kurtz [employer]USEUM [employer]UR[employer] CHIEF Jun 17, 2020 10:44
--- NOTE | 2020-06-17 11:32 | General Surgery Progress Note ---
General Surgery-Progress Note Subjective Procedure Performed lap appy Symptoms: improved Objective Last 24 Hour Vital Signs Date Time Temp Pulse Resp B/P (MAP) Pulse Ox O2 Delivery O2 Flow Rate FiO2 06/17/20 08:00 97.5 84 18 110/74 (86) 98 06/17/20 04:00 97.4 81 18 120/100 (107) 100 06/17/20 00:00 97.7 106 18 107/67 (80) 97 06/16/20 21:00 Nasal Cannula 3.0 06/16/20 20:00 96.8 110 18 130/69 (89) 97 06/16/20 18:43 98.8 102 18 114/67 100 Nasal Cannula 3 06/16/20 18:40 99 20 111/61 99 Nasal Cannula 3 06/16/20 18:30 104 22 109/62 98 Nasal Cannula 3 06/16/20 18:25 100 20 116/63 100 Simple Mask 6 06/16/20 18:21 106 18 93 06/16/20 18:20 102 19 115/57 100 Simple Mask 6 06/16/20 18:15 107 22 125/63 100 Simple Mask 6 06/16/20 18:10 108 20 112/54 100 Simple Mask 6 06/16/20 18:05 98.2 106 18 116/67 100 Simple Mask 6 06/16/20 16:00 97.6 83 19 129/65 (86) 98 06/16/20 15:59 Room Air 06/16/20 12:00 97.7 12 133/93 95 Room Air 06/16/20 12:00 86 12 Room Air I&O Intake and Output 06/16/20 06/17/20 19:00 07:00 Intake Total 1000 ml 1310.0 ml Output Total 10 ml 600 ml Balance 990 ml 710.0 ml Intake Oral 800 ml IV Total 1000 ml 510.0 ml Output Urine Total 600 ml Estimated Blood Loss 10 ml # Voids 1 Dressing: dry Drains: none Respiratory: clear Abdomen: soft, flat, present bowel sounds, non-distended Extremities: no edema, no tenderness Laboratory Tests Test 06/16/20 11:56 06/17/20 05:11 White Blood Count 17.5 K/UL (4.8-10.8) H 14.9 K/UL (4.8-10.8) H Red Blood Count 6.25 M/UL (4.70-6.10) H 5.67 M/UL (4.70-6.10) Hemoglobin 17.6 G/DL (14.2-18.0) 16.2 G/DL (14.2-18.0) Hematocrit 52.0 % (42.0-52.0) 47.6 % (42.0-52.0) Mean Corpuscular Volume 83 FL (80-99) 84 FL (80-99) Mean Corpuscular Hemoglobin 28.1 PG (27.0-31.0) 28.5 PG (27.0-31.0) Mean Corpuscular Hemoglobin Concent 33.8 G/DL (32.0-36.0) 34.0 G/DL (32.0-36.0) Red Cell Distribution Width 12.5 % (11.6-14.8) 12.8 % (11.6-14.8) Platelet Count 225 K/UL (150-450) 259 K/UL (150-450) Mean Platelet Volume 7.2 FL (6.5-10.1) 7.5 FL (6.5-10.1) Neutrophils (%) (Auto) % (45.0-75.0) % (45.0-75.0) Lymphocytes (%) (Auto) % (20.0-45.0) % (20.0-45.0) Monocytes (%) (Auto) % (1.0-10.0) % (1.0-10.0) Eosinophils (%) (Auto) % (0.0-3.0) % (0.0-3.0) Basophils (%) (Auto) % (0.0-2.0) % (0.0-2.0) Differential Total Cells Counted 100 Neutrophils % (Manual) 89 % (45-75) H Lymphocytes % (Manual) 8 % (20-45) L Monocytes % (Manual) 3 % (1-10) Eosinophils % (Manual) 0 % (0-3) Basophils % (Manual) 0 % (0-2) Band Neutrophils 0 % (0-8) Platelet Estimate Adequate Platelet Morphology Normal Red Blood Cell Morphology Normal Urine Color Yellow Urine Appearance Cloudy Urine pH 5 (4.5-8.0) Urine Specific [place] 1.020 (1.005-1.035) Urine Protein 2+ (NEGATIVE) H Urine Glucose (UA) Negative (NEGATIVE) Urine Ketones 1+ (NEGATIVE) H Urine Blood 1+ (NEGATIVE) H Urine Nitrite Negative (NEGATIVE) Urine Bilirubin Negative (NEGATIVE) Urine Urobilinogen Normal MG/DL (0.0-1.0) Urine Leukocyte Esterase Negative (NEGATIVE) Urine RBC 0-2 /HPF (0 - 0) H Urine WBC 0 /HPF (0 - 0) Urine Squamous Epithelial Cells Occasional /LPF Urine Amorphous Sediment Many /LPF (NONE) H Urine Bacteria Occasional /HPF (NONE) Sodium Level 139 MMOL/L (136-145) 140 MMOL/L (136-145) Potassium Level 4.4 MMOL/L (3.5-5.1) 3.9 MMOL/L (3.5-5.1) Chloride Level 102 MMOL/L (98-107) 103 MMOL/L (98-107) Carbon Dioxide Level 26 MMOL/L (21-32) 26 MMOL/L (21-32) Anion Gap 11 mmol/L (5-15) 11 mmol/L (5-15) Blood Urea Nitrogen 10 mg/dL (7-18) 13 mg/dL (7-18) Creatinine 1.0 MG/DL (0.55-1.30) 1.3 MG/DL (0.55-1.30) Estimat Glomerular Filtration Rate > 60 mL/min (>60) > 60 mL/min (>60) Glucose Level 126 MG/DL (74-106) H 137 MG/DL (74-106) H Calcium Level 10.2 MG/DL (8.5-10.1) H 9.3 MG/DL (8.5-10.1) Total Bilirubin 0.5 MG/DL (0.2-1.0) Aspartate Amino Transf (AST/SGOT) 34 U/L (15-37) Alanine Aminotransferase (ALT/SGPT) 86 U/L (12-78) H Alkaline Phosphatase 108 U/L (46-116) C-Reactive Protein, Quantitative 3.4 mg/dL (0.00-0.90) H Total Protein 8.9 G/DL (6.4-8.2) H Albumin 4.6 G/DL (3.4-5.0) Globulin 4.3 g/dL Albumin/Globulin Ratio 1.1 (1.0-2.7) Lipase 132 U/L (73-393) Urine Opiates Screen Negative (NEGATIVE) Urine Barbiturates Screen Negative (NEGATIVE) Phencyclidine (PCP) Screen Negative (NEGATIVE) Urine Amphetamines Screen Negative (NEGATIVE) Urine Benzodiazepines Screen Negative (NEGATIVE) Urine Cocaine Screen Negative (NEGATIVE) Urine Marijuana (THC) Screen Negative (NEGATIVE) Assessment Post-op Diagnosis acute appy Plan Additional Comments possible discharge in AM Mercedes Shi MD Jun 17, 2020 11:32
[2020-06-17 12:00] VITALS: BP 122/74
--- NOTE | 2020-06-17 12:23 | 48 Hour Post Anesthesia Eval ---
Post Anesthesia Evaluation Procedure: Laproscopic Appendectomy Date of Evaluation: Jun 17, 2020 Time of Evaluation: 12:22 Blood Pressure Systolic: 110 0: 74 Pulse Rate: 84 Respiratory Rate: 18 Temperature (Fahrenheit): 97.5 O2 Sat by Pulse Oximetry: 98 Airway: patent Nausea: No Vomiting: No Pain Intensity: 2 Hydration Status: adequate Cardiopulmonary Status: Stable Mental Status/LOC: patient returned to baseline Follow-up Care/Observations: 0 Post-Anesthesia Complications: 0 Follow-up care needed: N/A Luis Sanchez MD Jun 17, 2020 12:23
[2020-06-17] MEDS: Docusate Sod/Senna tab ORAL SCH ×2 (14:12→17:27)
[2020-06-17 16:00] VITALS: BP 130/83
--- NOTE | 2020-06-17 16:10 | NUR ---
CASE MANAGEMENT:REVIEW 29 YR OLD MALE PRESENTED TO ER CC: ABDOMINAL PAIN. N/V SI: ACUTE APPENDICITIS 97.7 86 12 133/93 95% ON RA IS: 1L NS BOLUS X2 IV PEPCID IV DILAUDID IV TORADOL IV ROCEPHIN IV FLAGYL IV ZOSYN CHEST XRAY : TO MED/SURG PLAN: TO SURGERY FOR LAP APPY
--- NOTE | 2020-06-17 19:10 | NUR ---
NURSE HAND-OFF: Important Events on Shift:[Started reg diet ] Patient Status: [stable] Diet: [reg diet] Pending Orders: [] Pending Results/Labs:[] Pending MD notification:[] Latest Vital Signs: Temperature 97.7 , Pulse 80 , B/P 130 /83 , Respiratory Rate 18 , O2 SAT 98 , Nasal Cannula, O2 Flow Rate 3.0 . Vital Sign Comment: [] Latest Hatch Fall Score: 20 Fall Risk: Low Risk Safety Measures: Call light Within Reach, Bed Alarm Zone 1, Side Rails Side Rails x2, Bed position Low and Locked. Fall Precautions: Yellow Socks Report given to [Carmen SALEH].
[2020-06-17 20:00] VITALS: BP 121/79
--- NOTE | 2020-06-17 20:06 | NUR ---
NURSE NOTES: Received report from therese jackman. patient is on bed, awake. on room air. iv access on the right ac running ivf as ordered. per THERESE jackman " 3 surgical sites with tegaderm from lap surgery " denies any pain or discomfort at the moment. reiterated to call and ask for assistance to prevent fall or injury. bed locked and in lowest position. call light and light button within easy reach. will continue plan of care.
[2020-06-17] MEDS: Enoxaparin 40mg Inj SUBQ SCH (21:00)
[2020-06-18] VITALS: BP 130/81
[2020-06-18] MEDS: D5 1/2NS w/KCl 20mEq 1,000 ML IV SCH ×2 (01:03→12:00)
[2020-06-18 04:00] VITALS: BP 124/79
[2020-06-18] MEDS: Piperacillin/Tazobactam 3.375 GM in NS 110 ML IVPB SCH (05:51)
--- NOTE | 2020-06-18 06:20 | NUR ---
NURSE HAND-OFF: Important Events on Shift: s/p lap day 2; ambulates and goes to the bathroom. Patient Status: stable Diet: regular Pending Orders: Pending Results/Labs: Pending MD notification: Latest Vital Signs: Temperature 97.4 , Pulse 88 , B/P 124 /79 , Respiratory Rate 18 , O2 SAT 99 , Nasal Cannula, O2 Flow Rate 3.0 . Vital Sign Comment: Latest Hatch Fall Score: 20 Fall Risk: Low Risk Safety Measures: Call light Within Reach, Bed Alarm Zone 1, Side Rails Side Rails x2, Bed position Low and Locked. Fall Precautions: Patient Fall Education Addendum: 06/18/20 at 0720 by Anne-Marie Marx RN HAND-OFF: Report given to fina jackman.
[2020-06-18 06:21] LABS: BASOPHILS % (AUTO) 0.4 % (0.0-2.0); EOSINOPHILS % (AUTO) 0.9 % (0.0-3.0); HEMATOCRIT 41.5 % (42.0-52.0); HEMOGLOBIN 14.1 G/DL (14.2-18.0); LYMPHOCYTES % (AUTO) 28.4 % (20.0-45.0); MEAN CORPUSCULAR VOLUME 84 FL (80-99); MONOCYTES % (AUTO) 5.6 % (1.0-10.0); NEUTROPHILS % (AUTO) 64.7 % (45.0-75.0); PLATELET COUNT 211 K/UL (150-450); RED BLOOD COUNT 4.92 M/UL (4.70-6.10); RED CELL DISTRIBUTION WIDTH 12.8 % (11.6-14.8); WHITE BLOOD COUNT 8.4 K/UL (4.8-10.8)
[2020-06-18 06:42] LABS: ANION GAP 6 mmol/L (5-15); BLOOD UREA NITROGEN 13 mg/dL (7-18); CALCIUM 9.1 MG/DL (8.5-10.1); CARBON DIOXIDE 28 MMOL/L (21-32); CHLORIDE 106 MMOL/L (98-107); CREATININE 1.1 MG/DL (0.55-1.30); POTASSIUM 4.2 MMOL/L (3.5-5.1); SODIUM 140 MMOL/L (136-145)
--- NOTE | 2020-06-18 07:15 | NUR ---
NURSE NOTES: Received report from Carmen SALEH. Patient is awake in bed, A&O x4. Reports no pain or nausea. Ambulating to restroom, activity tolerance good. Breakfast is set up in bed. No cough or Sob, patient on room air. Surgical sites clean and intact. Call light in reach, bed in lowest position, side rails up.
[2020-06-18 08:00] VITALS: BP 126/81
--- NOTE | 2020-06-18 09:09 | Pulmonology Progress Note ---
Subjective Allergies: Coded Allergies: No Known Allergies (Unverified , 06/16/20) Subjective s/p lap appy 06/16 leuk resolved afebrile pulse ox remains stable on RA no SOB, no CP pain controlled tolerates regular diet passing gas ambulated Objective Last 24 Hour Vital Signs Date Time Temp Pulse Resp B/P (MAP) Pulse Ox O2 Delivery O2 Flow Rate FiO2 06/18/20 08:09 Room Air 06/18/20 08:00 98.1 79 19 126/81 (96) 95 06/18/20 04:00 97.4 88 18 124/79 (94) 99 06/18/20 00:00 97.6 70 18 130/81 (97) 95 06/17/20 21:00 Nasal Cannula 3.0 06/17/20 20:00 97.5 76 18 121/79 (93) 99 06/17/20 16:00 97.7 80 18 130/83 (99) 98 06/17/20 12:23 84 18 98 06/17/20 12:00 97.7 67 18 122/74 (90) 97 Intake and Output 06/17/20 06/18/20 19:00 07:00 Intake Total 800 ml 450 ml Balance 800 ml 450 ml Intake Oral 800 ml 450 ml # Voids 3 3 Objective General Appearance: WD/WN, no apparent distress, alert Lines, tubes and drains: peripheral HEENT: normocephalic, atraumatic, anicteric, mucous membranes moist, PERRL Neck: supple Respiratory/Chest: chest wall non-tender, lungs clear Cardiovascular/Chest: normal peripheral pulses, normal rate, regular rhythm GI: + BS, soft, non tender, small dressings over lap incisions C?D/I- Extremities: normal range of motion, non-tender, no calf tenderness, normal capillary refill Skin Exam: normal pigmentation, warm/dry Neurologic: records supervisor II-XII grossly normal, no motor/sensory deficits, alert, oriented x 3, responsive Musculoskeletal: normal muscle bulk Microbiology Date/Time Source Procedure Growth Status 06/16/20 13:40 Nasopharynx SARS-CoV-2 RdRp Gene Assay - Final Complete Laboratory Tests 06/18/20 06:07: White Blood Count 8.4, Red Blood Count 4.92, Hemoglobin 14.1L, Hematocrit 41.5L, Mean Corpuscular Volume 84, Mean Corpuscular Hemoglobin 28.6, Mean Corpuscular Hemoglobin Concent 33.9, Red Cell Distribution Width 12.8, Platelet Count 211, Mean Platelet Volume 7.3, Neutrophils (%) (Auto) 64.7, Lymphocytes (%) (Auto) 28.4, Monocytes (%) (Auto) 5.6, Eosinophils (%) (Auto) 0.9, Basophils (%) (Auto) 0.4, Sodium Level 140, Potassium Level 4.2, Chloride Level 106, Carbon Dioxide Level 28, Anion Gap 6, Blood Urea Nitrogen 13, Creatinine 1.1, Estimat Glomerular Filtration Rate > 60, Glucose Level 90, Calcium Level 9.1 Current Medications Medications (Trade) Dose Ordered Sig/Black Route PRN Reason Start Time Stop Time Status Last Admin Dose Admin Acetaminophen (Tylenol) 650 mg Q4H PRN ORAL Mild Pain (Pain Scale 1-3) 06/16/20 14:15 07/16/20 14:14 Acetaminophen (Tylenol) 650 mg Q4H PRN ORAL Temp >100.5 06/16/20 14:15 07/16/20 14:14 Acetaminophen (Tylenol) 650 mg Q4H PRN RECTAL Mild Pain (Pain Scale 1-3) 06/16/20 18:15 07/16/20 18:14 Dextrose (Dextrose 50%) 25 ml Q30M PRN IV Hypoglycemia 06/16/20 14:15 09/14/20 14:14 Dextrose (Dextrose 50%) 50 ml Q30M PRN IV Hypoglycemia 06/16/20 14:15 09/14/20 14:14 Dextrose/ Electrolytes 1,000 ml @ 100 mls/hr Q10H IV 06/16/20 20:00 07/16/20 19:59 06/18/20 01:03 Enoxaparin Sodium (Lovenox) 40 mg Q24H SUBQ 06/16/20 21:00 09/14/20 20:59 Famotidine (Pepcid) 40 mg DAILY ORAL 06/17/20 09:00 09/15/20 08:59 06/17/20 08:30 Hydromorphone HCl (Dilaudid) 1 mg Q4H PRN IVP For Pain 06/16/20 18:15 06/23/20 18:14 06/17/20 16:11 Iohexol (OMNIPAQUE-300 100ml) 100 ml NOW PRN INJ Radiology Procedure 06/16/20 12:00 06/18/20 11:59 Metoclopramide HCl (Reglan) 10 mg Q8H PRN IVP Nausea & Vomiting 06/16/20 18:15 07/16/20 18:14 Ondansetron HCl (Zofran) 4 mg Q6H PRN IVP Nausea & Vomiting 06/16/20 14:15 07/16/20 14:14 06/17/20 17:04 Pantoprazole (Protonix) 40 mg DAILY IVP 06/16/20 18:15 07/16/20 18:14 06/17/20 08:30 Piperacillin Sod/ Tazobactam Sod 3.375 gm/Sodium Chloride 110 ml @ 27.5 mls/hr Q8HR IVPB 06/16/20 22:00 06/23/20 21:59 06/18/20 05:51 Senna/Docusate Sodium (Arianne-Colace) 1 tab TWICE A DAY ORAL 06/17/20 13:00 07/17/20 12:59 06/17/20 17:27 Assessment/Plan Assessment/Plan ASSESSMENT Acute appendicitis COVID infection Poonam liver Elevated AST possibly due to fatty liver Mild hyper Ca likely due to dehydration PLAN OF CARE MS floor s/p lap appy 06/16 pain management-controlled diet tolerated off IVF -dc when tolerates diet empiric Zosyn , leuk resolved- on dc oral Keflex a/emetic prn OOB as tolerated IS while in the bed rapid COVID 19 positive remains on RA, pulse oximetry stable hold steroids since no hypoxia hold Remdesivir, ID consult appreciated - no indication for COVID treatment at this time fup with CXR- no acute CP pathology monitor inflammatory markers DVT prophylaxis with LMWH supportive care dc today self isolation for total of 10 days from the day of diagnosis 06/16- 06/26 case discussed and evaluated by supervising physician Jodi Kurtz NP Jun 18, 2020 09:09
[2020-06-18] MEDS ORDERED: COLACE100 MG ORAL (09:12)
[2020-06-18] MEDS ORDERED: TRAMADOL HCL50 MG ORAL (09:12)
[2020-06-18] MEDS ORDERED: CEPHALEXIN500 MG ORAL (09:12)
[2020-06-18] MEDS: Docusate Sod/Senna tab ORAL SCH (09:30)
[2020-06-18] MEDS: Pantoprazole Inj IVP SCH (09:30)
[2020-06-18 12:00] VITALS: BP 126/78
--- NOTE | 2020-06-18 13:40 | NUR ---
NURSE NOTES: Patient was discharged to home via girlfriend's car. Patient stable, surgical sites clean and dry, no acute distress. Discharge teaching done, counted belonging with patient, provided D/C packet, documents signed, removed IV and ID band. Provided new mask and isolation instructions for Covid 19. New prescription given. Took patient to lobby, patient left in vehicle safely.
--- NOTE | 2020-06-20 12:22 | Discharge Summary ---
Discharge Summary Discharge Summary _ Date of admission: 06/16/2020 Date of discharge: 06/18/[address] Munguia History of Present Illness and Brief Hospital Course Mr. Escobedo is a 29-year-old male with recent diagnosis of COVID-19 4 days prior, who presented to the ED for evaluation of sharp epigastric pain that started the morning of. He reported he was evaluated at a clinic that morning where no advanced imaging study was available. Reported to have some nausea and vomiting without diarrhea, chest pain or shortness of breath. He reported that his epigastric pain radiated to right lower quadrant while in the ED. Patient was started on Zosyn and was admitted for surgical management. Given his normoxemia on room air, patient was monitored for hypoxia because there was no indication for COVID-19 treatment at that time. Low molecular weight heparin was provided for DVT prophylaxis measure. CT showed appendicitis, and groundglass opacities at the lung bases that was consistent with his recent diagnosis of COVID-19. Patient went through laparoscopic appendectomy. Patient tolerated the procedure very well and was transferred to recovery room in stable condition and extubated. Patient began tolerating regular diet, passing flatus, and ambulating. Patient was medically stable for discharge and was discharged home on 06/18/2020. Consultants: Infectious disease Dr. Lewis Surgery Dr. Shi Discharge Condition Improved and stable Discharge Activity Advance as tolerated Discharge Diet Regular diet Final diagnoses Acute appendicitis COVID-19 infection Fatty liver Hypercalcemia I have been assigned to dictate discharge summary for this account. I was not involved in the patient's management Yosvany Fletcher Jun 20, 2020 12:22
== END 2020-06-18 13:35 | disposition home or self-care (01) | DRG 341 ==
LOC: EMR 12:21 → 4E 14:13 → EDBEDREQ 15:39
PROC: 0DTJ4ZZ Resection of Appendix, Percutaneous Endoscopic Approach (ICD-10-PCS; principal; 2020-06-16 16:15)
DX: K35.80 Unspecified acute appendicitis (principal); U07.1 COVID-19; K76.0 Fatty (change of) liver, not elsewhere classified; E86.0 Dehydration; E83.52 Hypercalcemia
CPT/HCPCS: 36415; 71045; 74177; 80048; 80053; 80307; 81003; 83690; 85007; 85025; 86140; 94003; 94150; 96361; 96365; 96375; 99285; C9399; J2405; J2710; J7030; U0002

== ENCOUNTER 2020-08-15 16:24 | Emergency (ER) | payer MEDICAID ==
[~2020-08-15] VITALS: Ht 172.7 cm; Wt 79.4 kg
[~2020-08-15 16:24] MED LIST: CEPHALEXIN500 MG ORAL; COLACE100 MG ORAL; TRAMADOL HCL50 MG ORAL
[2020-08-15 17:23] LABS: BASOPHILS % (AUTO) 0.4 % (0.0-2.0); HEMATOCRIT 45.6 % (42.0-52.0); HEMOGLOBIN 16.2 G/DL (14.2-18.0); MEAN CORPUSCULAR VOLUME 81 FL (80-99); MONOCYTES % (AUTO) 5.4 % (1.0-10.0); NEUTROPHILS % (AUTO) 68.2 % (45.0-75.0); PLATELET COUNT 237 K/UL (150-450); RED BLOOD COUNT 5.61 M/UL (4.70-6.10); RED CELL DISTRIBUTION WIDTH 13.4 % (11.6-14.8); WHITE BLOOD COUNT 6.4 K/UL (4.8-10.8)
[2020-08-15 17:33] LABS: ANION GAP 10 mmol/L (5-15); BLOOD UREA NITROGEN 13 mg/dL (7-18); CALCIUM 9.7 MG/DL (8.5-10.1); CARBON DIOXIDE 28 MMOL/L (21-32); CHLORIDE 100 MMOL/L (98-107); POTASSIUM 3.8 MMOL/L (3.5-5.1); SODIUM 138 MMOL/L (136-145)
[2020-08-15 17:38] LABS: ALANINE AMINOTRANSFERASE 77 U/L (12-78); ALBUMIN 4.5 G/DL (3.4-5.0); ALBUMIN/GLOBULIN RATIO 1.3 (1.0-2.7); ALKALINE PHOSPHATASE 105 U/L (46-116); ASPARTATE AMINO TRANSFERASE 30 U/L (15-37); BILIRUBIN,TOTAL 0.8 MG/DL (0.2-1.0)
[2020-08-15 18:09] LABS: APPEARANCE,URINE CLEAR; BILIRUBIN, URINE NEGATIVE (NEGATIVE); COLOR,URINE PALE YELLOW; GLUCOSE, URINE (UA) NEGATIVE (NEGATIVE); KETONES,URINE NEGATIVE (NEGATIVE); LEUKOCYTE ESTERASE ,URINE NEGATIVE (NEGATIVE); NITRITE,URINE NEGATIVE (NEGATIVE); PH,URINE 6 (4.5-8.0); PROTEIN,URINE NEGATIVE (NEGATIVE); UROBILINOGEN,URINE 1 MG/DL (0.0-1.0)
--- NOTE | 2020-08-15 19:00 | NUR ---
pt arrives to ER with complaints of abdominal pain x few days. ER orders completed and pending results. pt in NAD at this time. respirations even and non labored, skin warm and dry.
--- NOTE | 2020-08-15 19:34 | Diagnostic Imaging Report ---
EXAM: XR Abdomen, 2 Views CLINICAL HISTORY: PAIN TECHNIQUE: Frontal view of the abdomen/pelvis with upright view of the abdomen. COMPARISON: No relevant prior studies available. FINDINGS: Intraperitoneal space: No free air. Gastrointestinal tract: Nonspecific, nonobstructive bowel gas pattern. No dilation. Bones/joints: Unremarkable. Other: Hepatomegaly with the liver measuring 25 cm in craniocaudal dimension. IMPRESSION: 1. No acute findings. 2. Hepatomegaly.
[2020-08-15] MEDS ORDERED: ONDANSETRON ODT4 MG BC (19:39)
[2020-08-15] MEDS ORDERED: MECLIZINE HCL25 MG ORAL (19:39)
[2020-08-15] MEDS ORDERED: Ketorolac 30mg Inj IV ONE (19:45)
[2020-08-15] MEDS ORDERED: Meclizine 25mg tab ORAL ONE (19:45)
[2020-08-15 20:04] VITALS: BP 125/85
--- NOTE | 2020-08-18 06:24 | Emergency Room Report ---
History of Present Illness General Chief Complaint: Abdominal Pain Source: Patient Present Illness HPI Patient is a 29-year-old male presents for increased abdominal pain. Gradual onset of symptoms over the past 2 to 3 days. States that he been having persistent pain to the upper abdomen. Had appendicitis and had laparoscopic appendectomy performed approximately 2 months ago. Has been doing well postoperatively. Denies any recent fever. Reports increased nausea. Allergies: Coded Allergies: No Known Allergies (Unverified , 06/16/20) COVID-19 Screening Contact w/high risk pt: No Experienced COVID-19 symptoms?: No COVID-19 Testing performed MANAGEMENT REP: No Patient History Past Medical History: see triage record Reviewed Nursing Documentation: PMH: Agreed; PSxH: Agreed Nursing Documentation-PMH Hx Cardiac Problems: No Hx Cancer: No Hx Neurological Problems: No Review of Systems All Other Systems: negative except mentioned in HPI Physical Exam Vital Signs Date Time Temp Pulse Resp B/P (MAP) Pulse Ox O2 Delivery O2 Flow Rate FiO2 08/15/20 16:43 98.1 76 18 128/80 (96) 97 Room Air Sp02 EP Interpretation: reviewed, normal General Appearance: normal inspection, well appearing, no apparent distress, alert, GCS 15, non-toxic Head: atraumatic ENT: normal ENT inspection, hearing grossly normal, normal voice Neck: normal inspection, full range of motion, supple, no bony tend Respiratory: normal inspection, lungs clear, normal breath sounds, no respiratory distress, no retraction, no wheezing Cardiovascular #1: regular rate, rhythm, no edema Gastrointestinal: normal inspection, normal bowel sounds, non tender, soft, no guarding, no hernia Genitourinary: no CVA tenderness Musculoskeletal: normal inspection, back normal, normal range of motion Neurologic: alert, motor strength/tone normal, radiology orderly III-XII nml as tested, responsive, speech normal, normal inspection Psychiatric: normal inspection, judgement/insight normal, mood/affect normal Medical Decision Making Diagnostic Impression: Primary Impression: Nonspecific abdominal pain ER Course Patient presented for abdominal pain. Differential diagnoses included ischemic bowel,perforated viscus, abdominal aortic aneurysm, inferior myocardial infarction, viral gastroenteritis among others.Because patient's complexity imaging studies, and laboratory testing ordered. Laboratory testing showed . Normal blood counts without evidence of obstructive pattern on acute abdominal series. Patient's symptoms appear to be related to viral type illness. Patient appears to be stable for close outpatient follow up. Patient was given medications for symptomatic management. He was advised to follow-up with primary care physician for recheck in 1 to 2 days. Is advised to return if worse. This medical record is generated with [employer] warehouse logistics manager software. There may be some warehouse logistics manager discrepancies related to use of this software Labs Test 08/15/20 17:10 08/15/20 18:00 White Blood Count 6.4 K/UL (4.8-10.8) Red Blood Count 5.61 M/UL (4.70-6.10) Hemoglobin 16.2 G/DL (14.2-18.0) Hematocrit 45.6 % (42.0-52.0) Mean Corpuscular Volume 81 FL (80-99) Mean Corpuscular Hemoglobin 28.8 PG (27.0-31.0) Mean Corpuscular Hemoglobin Concent 35.4 G/DL (32.0-36.0) Red Cell Distribution Width 13.4 % (11.6-14.8) Platelet Count 237 K/UL (150-450) Mean Platelet Volume 7.4 FL (6.5-10.1) Neutrophils (%) (Auto) 68.2 % (45.0-75.0) Lymphocytes (%) (Auto) 24.0 % (20.0-45.0) Monocytes (%) (Auto) 5.4 % (1.0-10.0) Eosinophils (%) (Auto) 2.0 % (0.0-3.0) Basophils (%) (Auto) 0.4 % (0.0-2.0) Sodium Level 138 MMOL/L (136-145) Potassium Level 3.8 MMOL/L (3.5-5.1) Chloride Level 100 MMOL/L (98-107) Carbon Dioxide Level 28 MMOL/L (21-32) Anion Gap 10 mmol/L (5-15) Blood Urea Nitrogen 13 mg/dL (7-18) Creatinine 1.0 MG/DL (0.55-1.30) Estimat Glomerular Filtration Rate > 60 mL/min (>60) Glucose Level 127 MG/DL (74-106) Calcium Level 9.7 MG/DL (8.5-10.1) Total Bilirubin 0.8 MG/DL (0.2-1.0) Aspartate Amino Transf (AST/SGOT) 30 U/L (15-37) Alanine Aminotransferase (ALT/SGPT) 77 U/L (12-78) Alkaline Phosphatase 105 U/L (46-116) Total Protein 7.9 G/DL (6.4-8.2) Albumin 4.5 G/DL (3.4-5.0) Globulin 3.4 g/dL Albumin/Globulin Ratio 1.3 (1.0-2.7) Lipase 144 U/L (73-393) Urine Color Pale yellow Urine Appearance Clear Urine pH 6 (4.5-8.0) Urine Specific [place] 1.015 (1.005-1.035) Urine Protein Negative (NEGATIVE) Urine Glucose (UA) Negative (NEGATIVE) Urine Ketones Negative (NEGATIVE) Urine Blood Negative (NEGATIVE) Urine Nitrite Negative (NEGATIVE) Urine Bilirubin Negative (NEGATIVE) Urine Urobilinogen 1 MG/DL (0.0-1.0) Urine Leukocyte Esterase Negative (NEGATIVE) Last Vital Signs Date Time Temp Pulse Resp B/P (MAP) Pulse Ox O2 Delivery O2 Flow Rate FiO2 08/15/20 20:04 97.3 17 125/85 99 Room Air 08/15/20 20:03 82 Status: improved Disposition: HOME, SELF-CARE Condition: Improved Scripts Meclizine Hcl* (MECLIZINE*) 25 Mg Tablet 25 MG ORAL THREE TIMES A DAY, #30 TAB Prov: Devyn Chen MD 08/15/20 Ondansetron Odt* (ZOFRAN ODT*) 4 Mg Tab.rapdis 4 MG BC EVERY 8 HOURS PRN for Nausea & Vomiting, #10 TAB 0 Refills Prov: Devyn Chen MD 08/15/20 Referrals: NOT CHOSEN IPA/,REFERRING (PCP) Patient Instructions: Abdominal Pain, Adult Additional Instructions: Follow up with your doctor for recheck. Return if worse. Devyn Chen MD Aug 18, 2020 06:24
== END 2020-08-15 20:07 | disposition home or self-care (01) ==
LOC: EMR 16:43
DX: R10.10 Upper abdominal pain, unspecified (principal); Z90.89 Acquired absence of other organs; R16.0 Hepatomegaly, not elsewhere classified
CPT/HCPCS: 36415; 74019; 80053; 81003; 83690; 85025; 96361; 96374; 96375; 99284; J2405; J7030